=== PATIENT | male | born 1965 | race Two or more races ===

== ENCOUNTER 2017-09-06 08:15 | Outpatient (CLI) | payer BC ==
[~2017-09-06 08:15] MED LIST: ANAGRELIDE HCL0.5 MG ORAL
--- NOTE | 2017-09-06 10:48 | PATHOLOGY BONE BARROW ---
Bone Marrow Aspirate & Biopsy . PROCEDURE: Bone Marrow Aspirate and Biopsy INDICATION: Myelofibrosis PROCEDURE SEGMENTAL PAVING SUPERVISOR: Nory Pemberton CONSENT: Consent was previously obtained from the patient. The risks and benefits were re-explained. The patient agreed to undergo the procedure. A TIMEOUT WAS EXECUTED: Yes PROCEDURE SUMMARY: The patient was laid in the side position. The left posterior iliac crest was prepped and draped in a sterile fashion. The crest of the posterior iliac was located, and the skin as well as surface of the bone was anesthetized with 1 % lidocaine. An aspirating needle was introduced, the bone marrow aspirate was obtained without any difficulty. This was withdrawn the coring needle was advanced into the bone cavity. A bone marrow biopsy was obtained without any complications. ESTIMATED BLOOD LOSS: Negligible Keep the spot dry for 24 hours. Patient to be observed for possible bleeding for 30 min in outpatient recovery and discharged home if no complications. Resume normal activities. REPORTS TO FOLLOW NORY PEMBERTON Sep 06, 2017 10:48
[2017-09-06 10:57] LABS: HEMATOCRIT 38.9 % (42.0-52.0); MEAN CORPUSCULAR VOLUME 91 FL (80-99); PLATELET COUNT 401 K/UL (150-450); RED BLOOD COUNT 4.26 M/UL (4.70-6.10); RED CELL DISTRIBUTION WIDTH 14.7 % (11.6-14.8); WHITE BLOOD COUNT 9.3 K/UL (4.8-10.8)
--- NOTE | 2017-09-06 14:06 | Diagnostic Imaging Report ---
Indication: Low back pain Technique: Sagittal T1, sagittal T2 PROPELLER, sagittal STIR, axial T2 FRFSE, axial T1, axial T2 PROPELLER disc cuts, pre and postcontrast sagittal T1 fat saturated images of the lumbar spine Comparison: none Findings: Vertebral body marrow signal is equivocally abnormal. It is heterogeneous in appearance, particularly on the T1 and STIR images. On the T1-weighted images, signal is mostly hypointense, approximately isointense with disc although more intense than muscle. On the STIR images, marrow signal appears diffusely slightly increased. No definite focal abnormality except for a focus of slightly increased T2 signal in mid L4. Bony alignment is normal. Vertebral body heights are preserved. The disc spaces are preserved except for mild narrowing of the T11-12 disc. There is disc desiccation at all levels below L1-2. No unusual contrast enhancement is evident. Conus medullaris terminates at the L1-2 level At L3-4, there is mild circumferential annular bulge which does not significantly compromise the spinal canal or the neural foramina. At L4-5, there is circumferential annular bulge which does not significantly compromise the spinal canal. There may be mild compromise of the bilateral neural foramina at this level. At the remaining disc levels, no significant disc bulge or protrusion, spinal stenosis, or neural foraminal stenosis. On the highest cuts, the spleen appears likely prominent although incompletely included and therefore not measurable. The remainder of the included extra spinal soft tissues are unremarkable. Impression: Apparent diffuse marrow abnormality, as described. Most likely related to stated clinical history of myelofibrosis No focal lesion demonstrated Mild degenerative changes as detailed on a level by level basis above Possible splenomegaly.
--- NOTE | 2017-09-06 14:36 | Diagnostic Imaging Report ---
Indication: Mid to low back pain. Stated clinical history of myelofibrosis, per electronic medical record Technique: Sagittal T1 fast spin echo, sagittal T2 FRFSE, sagittal STIR, axial T2 FRFSE, axial T1, axial and sagittal T1 fat saturated images pre and post contrast ministration Comparison: none Findings: There is diffusely heterogeneous and overall slightly decreased T1 marrow signal, and equivocally minimally increased STIR marrow signal. This is more notable in the lower than the upper thoracic spine. No focal abnormality. No abnormal contrast enhancement is demonstrated there is degenerative disc narrowing at T11-12. The remainder of the disc spaces are preserved. Multiple discs are desiccated, however. There is minimal circumferential annular bulge of the T11-12 disc, which does not significantly impinge upon the spinal canal. No significant disc bulge or protrusion, spinal stenosis, or neural foraminal stenosis is evident. A tiny cyst is seen in the left T2 pedicle. The spleen is incompletely included on the exam but appears possibly somewhat prominent. The other surrounding extraspinal soft tissues are unremarkable. Impression: Subtly diffusely abnormal marrow signal, possibly in keeping with described clinical history of myelofibrosis. Correlation with clinical laboratory findings recommended No acute process No evidence of significant neural impingement Minimal degenerative changes as described Possible splenomegaly
== END 2017-09-06 10:15 | disposition home or self-care (01) ==
LOC: MRI 08:15
DX: M54.9 Dorsalgia, unspecified (principal); D75.81 Myelofibrosis
CPT/HCPCS: 36415; 72157; 72158; 85007; 85025; 85060; 85610; A9585